=== PATIENT | male | born 1980 | race Two or more races ===

== ENCOUNTER 2016-12-02 09:38 | Emergency (ER) | payer MEDICAID, OTHER ==
[~2016-12-02] VITALS: Ht 162.6 cm; Wt 63.0 kg
[2016-12-02 09:50] VITALS: BP 139/73
--- NOTE | 2016-12-02 09:54 | NUR ---
PATIENT TO BED 4 AT THIS TIME,
--- NOTE | 2016-12-02 09:58 | NUR ---
PT PRESENTS TO ER W/C/O HEADACHE X1 DAY.PT STATES THAT HE IS DOING A WORK OUT WHEN HE FEELS A SUDDEN HEADACHE AT THE BACK OF HIS HEAD.PT SAID HE TOOK ADVIL AND AND RELIEVED PAIN A LITTLE BIT.DENIES CP/SOB/N/V/D/FEVER.PT IS AAOX4. NO ACUTE DISTRESS NOTED AT THIS TIME. HOB ELEVATED.NEEDS ATTENDED,SAFETY PRECAUTION INSTITUTED;SIDERAIKS UP;BED BRAKES APPLIED. PA AT BEDSIDE. WILL CONTINUE TO MONITOR PT.
--- NOTE | 2016-12-02 10:01 | NUR ---
Patient being evaluated by DR PRITCHARD at bedside.
--- NOTE | 2016-12-02 10:22 | NUR ---
Patient discharged with v/s stable. Written and verbal after care instructions given and explained. Patient alert, oriented and verbalized understanding of instructions. Ambulatory with steady gait. All questions addressed prior to discharge. ID band removed. Patient advised to follow up with PMD. Rx of MOTRIN given. Patient educated on indication of medication including possible reaction and side effects.PT IS ADVISED TO REFRAIN FROM STRENOUS ACTIVITIES AND APT AGREED TO IT. Opportunity to ask questions provided and answered.
[2016-12-02 10:24] VITALS: BP 130/70
== END 2016-12-02 10:22 | disposition home or self-care (01) ==
LOC: MED 09:38
DX: M79.1 Myalgia (principal)

== ENCOUNTER 2020-04-03 09:51 | Emergency (ER) | payer MEDICAID, OTHER ==
[~2020-04-03] VITALS: Ht 157.5 cm; Wt 61.7 kg
[2020-04-03 09:58] VITALS: BP 135/80
--- NOTE | 2020-04-03 10:05 | NUR ---
39 Y/O MALE FROM HOME STATES HE WANTS TO BE TESTED FOR COVID-19. ASYMPTOMATIC, NO COMPLAINTS. STATES HE NEEDS TO BE TESTED TO TRAVEL
--- NOTE | 2020-04-03 10:27 | NUR ---
DR MORRISON IN TENT EXAMINING PT
[2020-04-03 10:43] VITALS: BP 135/80
--- NOTE | 2020-04-03 10:43 | NUR ---
Patient discharged with v/s stable. Written and verbal after care instructions given and explained. Patient verbalized understanding. Ambulatory with steady gait. All questions addressed prior to discharge. Advised to follow up with PMD.
== END 2020-04-03 10:43 | disposition home or self-care (01) ==
LOC: MED 09:51
DX: Z02.89 Encounter for other administrative examinations (principal)
CPT/HCPCS: 99281; 99283

== ENCOUNTER 2022-02-27 10:04 | Emergency (ER) | payer MEDICAID, OTHER ==
[~2022-02-27] VITALS: Ht 157.5 cm; Wt 61.2 kg
[2022-02-27 10:05] VITALS: BP 135/95
--- NOTE | 2022-02-27 10:15 | NUR ---
PT AMBULATED TO ER BED 8
--- NOTE | 2022-02-27 10:23 | NUR ---
DR GREY AT BEDSIDE EVALUATING PT
--- NOTE | 2022-02-27 10:43 | NUR ---
PT TAKEN TO CT VIA WHEELCHAIR
--- NOTE | 2022-02-27 10:50 | NUR ---
PT BROUGHT BACK FROM CT VIA W/C.
--- NOTE | 2022-02-27 11:35 | NUR ---
ULTRASOUND AT BEDSIDE
[2022-02-27 12:44] VITALS: BP 124/64
[2022-02-27] MEDS ORDERED: EMLAC TP (13:56)
--- NOTE | 2022-02-27 14:03 | NUR ---
Patient discharged with v/s stable. Written and verbal after care instructions FOR HYDROCELE AND ADDUCTOR MUSCLE STRAIN given and explained. Patient alert, oriented and verbalized understanding of instructions. Ambulatory with steady gait. All questions addressed prior to discharge. ID band removed. Patient advised to follow up with PMD. Rx of LIDOCAINE CREAM given. Opportunity to ask questions provided and answered.
--- NOTE | 2022-02-27 14:04 | NUR ---
The patient's care was reviewed and supervised by Teresa Morris RN.
== END 2022-02-27 14:04 | disposition home or self-care (01) ==
LOC: MED 10:04
DX: S39.011A Strain of muscle, fascia and tendon of abdomen, initial encounter (principal); R03.0 Elevated blood-pressure reading, without diagnosis of hypertension; N43.3 Hydrocele, unspecified; N50.3 Cyst of epididymis; X58.XXXA Exposure to other specified factors, initial encounter; Y93.89 Activity, other specified; Y99.8 Other external cause status; Y92.89 Other specified places as the place of occurrence of the external cause
CPT/HCPCS: 72192; 76870; 81002; 99284; Q0092